=== PATIENT | female | born 1970 | race Hispanic/Latino ===

== ENCOUNTER 2017-02-13 17:16 | Emergency (ER) | payer BC | END 2017-02-13 18:00 | disposition home or self-care (01) | LOC: SCSER 17:16 | DX: M79.89 Other specified soft tissue disorders (principal) | CPT/HCPCS: 99283 ==

== ENCOUNTER 2017-04-25 14:42 | Emergency (ER) | payer BC ==
--- NOTE | 2017-04-25 15:51 | RAD ---
2 VIEWS CHEST: Date: 04/25/17 PROVIDED CLINICAL HISTORY: Hemoptysis. FINDINGS: Comparison made with the study dated 03/13/12. Cardiac and mediastinal silhouette is within normal limits. Lungs appear clear. No pleural fluid or p neumothorax apparent. IMPRESSION: No evidence for an acute cardiopulmonary process. POS: [facility]
== END 2017-04-25 15:55 | disposition home or self-care (01) ==
LOC: SCSER 14:42
DX: K64.4 Residual hemorrhoidal skin tags (principal); J40 Bronchitis, not specified as acute or chronic
CPT/HCPCS: 71046